=== PATIENT | male | born 1985 | race Caucasian/White ===

== ENCOUNTER 2019-01-19 00:50 | Emergency (ER) | payer MEDICAID ==
[~2019-01-19] VITALS: Ht 190.5 cm; Wt 95.3 kg
[2019-01-19 00:57] VITALS: BP 122/71
--- NOTE | 2019-01-19 01:04 | NUR ---
ASSESSMENT COMPLETED AT THIS TIME. LEFT HAND SOAKING IN BETADINE TO CLEANSE WOUNDS. BED IN LOW LOCKED POSTION, AAO. ERMD AWARE.
--- NOTE | 2019-01-19 01:16 | NUR ---
PATIENT LEFT AMA. REFUESED TO WAIT TO SIGN PAPERWORK.
== END 2019-01-19 01:16 | disposition left against medical advice (07) ==
LOC: MED 00:50
DX: S61.011A Laceration without foreign body of right thumb without damage to nail, initial encounter (principal); W25.XXXA Contact with sharp glass, initial encounter; Y93.89 Activity, other specified; Y92.89 Other specified places as the place of occurrence of the external cause; Y99.8 Other external cause status
CPT/HCPCS: 90715; 99281

== ENCOUNTER 2019-01-19 01:23 | Emergency (ER) | payer MEDICAID ==
[~2019-01-19] VITALS: Ht 190.5 cm; Wt 99.8 kg
[2019-01-19 01:23] VITALS: BP 171/82
--- NOTE | 2019-01-19 01:23 | NUR ---
Pt ambulated to bed 11.
--- NOTE | 2019-01-19 01:35 | NUR ---
PT TEOFILOD. ERMD AWARE.
--- NOTE | 2019-01-19 01:35 | NUR ---
Alexsandra cross in ED - 01/19/19 at 0344 by [email or web address] PT LEFT AMA. REFUSED TO SIGN AMA PAPERWORK.
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
== END 2019-01-19 01:35 | disposition left against medical advice (07) ==
LOC: MED 01:23
DX: S61.011A Laceration without foreign body of right thumb without damage to nail, initial encounter (principal); W25.XXXA Contact with sharp glass, initial encounter; Y93.89 Activity, other specified; Y92.89 Other specified places as the place of occurrence of the external cause; Y99.8 Other external cause status
CPT/HCPCS: 99281